=== PATIENT | male | born 1960 | race Two or more races ===

== ENCOUNTER 2025-01-26 14:42 | Emergency (ER) | payer OTHER ==
[~2025-01-26] VITALS: Ht 182.9 cm; Wt 72.6 kg
[2025-01-26 15:18] VITALS: BP 90/62; TEMP 97.5; O2SAT 97
== END 2025-01-26 15:18 ==
LOC: ER 14:49
DX: Z02.89 Encounter for other administrative examinations (principal); I10 Essential (primary) hypertension